=== PATIENT | male | born 1960 | race Caucasian/White ===

== ENCOUNTER 2025-02-05 10:17 | Outpatient (CLI) | payer BC ==
[~2025-02-05 10:17] MED LIST: Iopamidol 370 76% 100 ML VIAL ONE
[2025-02-05 11:16] LABS: Calc. Creatinine Clearance 0.0 mL/min (70-130)
== END 2025-02-05 10:18 | disposition home or self-care (01) ==
LOC: NAV CT 10:17
PROVIDERS: ATTEND Nurse Practitioner Family
DX: Z01.818 Encounter for other preprocedural examination (principal); R31.0 Gross hematuria; K76.0 Fatty (change of) liver, not elsewhere classified; N13.2 Hydronephrosis with renal and ureteral calculous obstruction; R91.1 Solitary pulmonary nodule
CPT/HCPCS: 36415; 74178; 82565; Q9967